=== PATIENT | female | born 1985 | race Caucasian/White ===

== ENCOUNTER 2024-04-22 10:45 | Outpatient (CLI) | payer OTHER, SELFPAY ==
--- NOTE | ~2024-04-22 | US_ITS ---
EXAMINATION: US venous doppler LE DATE: 04/22/2024 11:04 INDICATION: Right lower leg pain TECHNIQUE: Grayscale ultrasound images without and with compression and Doppler ultrasound images of the right lower extremity veins were obtained. COMPARISON: None. FINDINGS: The visualized portions of right common femoral vein, profunda (deep) femoral vein, femoral vein, pop liteal vein, peroneal trunk, posterior tibial veins, peroneal veins, gastrocnemius vein and greater s aphenous vein outflow are patent. IMPRESSION: 1. No deep venous thrombosis in the right lower limb. Reviewed, dictated and finalized at location A. DRAWER
--- OUTSIDE RECORDS SUMMARY | 2024-04-22 11:17 | XMS_ITS | Encounter Summary ---
Author Organization [facility] Address [address] [place] [address]. [place], [place] [address] [place] [address] Care Team Providers Care Cooker Cleaner Name Role Phone Yanira Catalan [facility] Primary Care Provider + Rashawn Rhodes Primary Care Provider [phone] Encounter Details Date Type Department Care Team (Late st Contact Info) Description 04/24/2022 enrich-int Message Enc [facility] Medical Group Family & Internal Medicine [facility] [id number] [place] [address] Yanira Catalan [facility] [address] [place] [address] Back pain Social History Tobacco Use Types Packs/Day Years Used Date Smoking Tobacco: Every Day Smokeless Tobacco: Never Alcohol Use Standard Drinks/Week Comments Yes 0 (1 standard drink = 0.6 oz pur e alcohol) PHQ-2 Answer Date Recorded Patient Health Questionnaire-2 Score 1 04/18/2022 Comments No Sex and Gender Information Value Date Recorded Sex Assigned at Not on file Legal Sex Female 5:37 PM CDT Gender Identity Female 08/14/2021 12:50 PM CDT Sexual Orientation Not on file Occupation Industry Job Start Date Job End Date Not on file Not on file Not on file Not on file COVID-19 Exposure Response Date Recorded In the last 10 days, have yo u been in contact with someone who was confirmed or suspected to have Coronavirus/COVID-19? No / Unsure 04/18/2022 12:08 PM SEWER LINE PHOTO INSPECTOR documented as of this encounter Plan of Treatment Not on file documented as of this encounter Visit Diagnoses Not on filedocumented in this encounter Additional Health Concerns Assessment Noted Time PHQ-9 Depression Total Score: 10 023 3:38 PM SEWER LINE PHOTO INSPECTOR documented as of this encounter Care Teams Cooker Cleaner Relationship Specialty Start Date End Date Yanira Catalan FNP- PCP - General Nurse Practitioner Family 08/27/1803/31 [place] [address] [place] [address] PCP - General Physician Accredited Farm Manager Medical 04/28/23 documented as of this encounter
--- OUTSIDE RECORDS SUMMARY | 2024-04-22 11:17 | XMS_ITS | Patient Health Summary ---
Author Organization [facility] Address [address] [place] [address] Care Team Providers Care Postulant Name Role Phone Unavailable Primary Care Provider Unavailabl e Note from [facility],non-owned Affiliates and Associated Physician Practices is amultiple site organization consisting of ambulatory clinics and hospital sitesin [place], [place], [place] and [place]. This disclosure is being madepursuant to the Care Everywhere program and may not contain all information available regarding this patient. Last updated 17.[facility] Social History Tobacco Use Types Packs/Day Years Used Date Smoking Tobacco: Never Assessed Sex and Gender Information Value Date Recorded Sex Assigned at Not on file Gender Identity Not on file Sexual Orientation Not on file Procedures * CULTURE URINE(Performed 10/19/2013) Results * CULTURE URINE (10/19/2013 4:00 PM CDT) Culture Urine Less than 10,000 CFU/ML of Normal Urogenital/ Skin Makayla [facility] Comment:. Urine specimen (specimen) URINE SPECIMEN OBTAINED BY CLEAN CATCH PROCEDURE / Unknown 10/19/2013 4:00 PM CDT 10/19/2013 9:04 PM CDT Narrative [facility] - 10/21/2013 1:54 PM CDT AndersonSpecimen#[id number] [place] Loc/Rm/Bed: EXPCARE H// CLN CATCH U Historical Provider LAB - MICROBIOLOG Y ORDERABLES [address] [address], [facility] [phone]
--- OUTSIDE RECORDS SUMMARY | 2024-04-22 11:17 | XMS_ITS | Encounter Summary ---
Author Organization [facility] Address [address] [place] [address]. [place], [place] [address] [place] [address] Care Team Providers Care Associate Professor Of Art Name Role Phone Yanira Catalan [facility] Primary Care Provider + Rashawn Rhodes Primary Care Provider [phone] Encounter Details Date Type Department Care Team (Late st Contact Info) Description 09/24/2022 MyChart Message Enc [facility] Medical Group - [facility] [address] [place] [address] [place] [address], [facility] Provider Air Quality Message Social History Tobacco Use Types Packs/Day Years Used Date Smoking Tobacco: Every Day Smokeless Tobacco: Never Alcohol Use Standard Drinks/Week Comments Yes 0 (1 standard drink = 0.6 oz pur e alcohol) PHQ-2 Answer Date Recorded Patient Health Questionnaire-2 Score 0 08/22/2022 Comments No Sex and Gender Information Value Date Recorded Sex Assigned at Not on file Legal Sex Female 5:37 PM CDT Gender Identity Female 08/14/2021 12:50 PM CDT Sexual Orientation Not on file Occupation Industry Job Start Date Job End Date Not on file Not on file Not on file Not on file documented as of this encounter Plan of Treatment Not on file documented as of this encounter Visit Diagnoses Not on filedocumented in this encounter Additional Health Concerns Assessment Noted Time PHQ-9 Depression Total Score: 10 023 4:33 PM CDT documented as of this encounter Care Teams Associate Professor Of Art Relationship Specialty Start Date End Date Yanira Catalan FNP-BC PCP - General Nurse Practitioner Family 08/27/1803/31 [place] [address] [place] [address] PCP - General Physician Car Supplier Medical 04/28/23 documented as of this encounter
--- OUTSIDE RECORDS SUMMARY | 2024-04-22 11:17 | XMS_ITS | Referral Summary ---
Author Organization [facility] Address [address] [facility] [place] [address] Care Team Providers Care Handle And Vent Machine Operator Name Role Phone Unavailable Primary Care Provider Unavailabl e Source Comments [facility],non-owned Affiliates and Associated Physician Practices is amultiple site organization consisting of ambulatory clinics and hospital sitesin [place], [place], [place] and [place]. This disclosure is being madepursuant to the Care Everywhere program and may not contain all information available regarding this patient. Last updated 17.[facility] Social History Tobacco Use Types Packs/Day Years Used Date Smoking Tobacco: Never Assessed Sex and Gender Information Value Date Recorded Sex Assigned at Not on file Gender Identity Not on file Sexual Orientation Not on file Plan of Treatment Not on file
--- OUTSIDE RECORDS SUMMARY | 2024-04-22 11:17 | XMS_ITS | Clinical Summary ---
Author Organization [facility] [employer] Address [address] [facility] [place] [address] Care Team Providers Care Pyridine Recovery Operator Name Role Phone Unavailable Primary Care Provider Unavailabl e Source Comments [facility],non-owned Affiliates and Associated Physician Practices is amultiple site organization consisting of ambulatory clinics and hospital sitesin [place], [place] and [place]. This disclosure is being madepursuant to the Care Everywhere program and may not contain all information available regarding this patient. Last updated 17.[facility] Social History Tobacco Use Types Packs/Day Years Used Date Smoking Tobacco: Never Assessed Sex and Gender Information Value Date Recorded Sex Assigned at Not on file Gender Identity Not on file Sexual Orientation Not on file Plan of Treatment Health Maintenance Due Date Last Done Comments PAP SMEAR 1987 HIV SCREENING 07/07/2002 HEPATITIS C SCREENING 07/03/2005 DTAP/TDAP/TD VACCINES (1 - Tdap) 07/07/2006 HEPATITIS B VACCINE (1 of 3 - 19+ 3-dose series) 07/07/2006 COVID-19 VACCINE (2023-2 5 season) 2023 INFLUENZA VACCINE (#1) 2023 DEPRESSION SCREENING 03/30/2024 ZOSTER VACCINE (1 of 2) 07/07/2037 HIB VACCINE Aged Out No longer eligi ble based on patient's age to complete this topic HPV VACCINE Aged Out No longer eligi ble based on patient's age to complete this topic MENINGOCOCCAL (Group B) VACCINE Aged Out No longer eligible based on patient's age to complete this topic MENINGOCOCCAL VACCINE Aged Out No castro claude eligible based on patient's age to complete this topic PNEUMOCOCCAL VACCINE Aged Out No long er eligible based on patient's age to complete this topic
--- OUTSIDE RECORDS SUMMARY | 2024-04-22 11:17 | XMS_ITS | Encounter Summary ---
Author Organization [facility] Address [address] [place] [address]. [place], [place] [address] [place] [address] Care Team Providers Care Polls Or Surveys Interviewer Name Role Phone Yanira Catalan [facility] Primary Care Provider + Rashawn Rhodes Primary Care Provider [phone] Encounter Details Date Type Department Care Team (Late st Contact Info) Description 08/07/2022 Lelat Message Enc [facility] Medical Group Family & Internal Medicine [address] [address] Yanira Catalan [facility] [address] [place] [id number] Side affect of medication Social History Tobacco Use Types Packs/Day Years [...] on file documented as of this encounter Progress Notes * Cassi Connors MA - 08/07/2022 10:12 AM CDT Please advise documented in this encounter Plan of Treatment Not on file documented as of this encounter Visit Diagnoses Not on filedocumented in this encounter Additional Health Concerns Assessment Noted Time PHQ-9 Depression Total Score: 10 023 3:38 PM SHIRT FINISHER documented as of this encounter Care Teams Polls Or Surveys Interviewer Relationship Specialty Start Date End Date [facility] PCP - General Nurse Practitioner Family 08/27/1803/31 [place] [address] [place] [address] PCP - General Physician Urinalysis Technician Medical 04/28/23 documented as of this encounter
--- OUTSIDE RECORDS SUMMARY | 2024-04-22 11:17 | XMS_ITS | Clinical Summary ---
Author Organization [facility] Address [address] [place] [address]. [place], [place] [address] [place] [address] Care Team Providers Care Computational Theory Scientist Name Role Phone Rashawn Rhodes Primary Care Provider Allergies Active Allergy Reactions Criticality Noted Date Comments Prednisone Palpitations Medium 08/30/2018 Medications FLUoxetine (PROZAC) 20 MG capsuleIndicatio ns:Generalized anxiety disorder,Reactiv e depression Take 1 capsule (20 mg total) by mouth daily. 30 capsule 1 3 Active albuterol sulfate HFA 108 (90 Base) MCG/ACT inhalerIndicatio ns:Uncomplicated asthma, unspecified asthma severity, unspecified whether persistent (HHS/HCC) Inhale 2 puffs into the lungs every 4 (four) hours as needed for Wheezing. 18 g 5 4 Active GASTON Núñez, (MEDROL DOSEPAK) 4 MG tabletIndication s:Mild intermittent asthma with exacerbation (HHS/HCC) Take as directed 1 each 4 Active Albuterol-Budeso nide (AIRSUPRA) 90-80 MCG/ACT AerosolIndicatio ns:Mild intermittent asthma with exacerbation (HHS/HCC) Inhale 2 Inhalations into the lungs every 4 (four) hours as needed. 10.7 g 1 4 Active naproxen (NAPROSYN) 500 MG tablet Take 1 tablet (500 mg total) by mouth 2 (two) times daily with meals. 60 tablet 4 Active Active Problems Problem Noted Date Diagnosed Date Alopecia 08/25/2022 Generalized anxiety disorder 08/30/2018 Reactive depression 08/30/2018 Uncomplicated asthma, unspec ified asthma severity, unspecified whether persistent ([facility]) 08/30/2018 Class 3 severe obesity due t o excess calories without serious comorbidity with body mass index (BMI) of 40.0 to 44.9 in adult ([facility]) 08/30/2018 Resolved Problems Problem Noted Date Diagnosed Date Resolved Date Other fatigue 08/30/2018 08/25/2022 Left elbow pain 08/17/2018 04/24/2022 Immunizations Name Administration Dates Next Due Dtap (Generic) 01/07/2016 Influenza Adult (Generic) 01/05/2023,,01/03/2019, 018 PFIZER COVID-19 (ORIGINAL FORMULATION, PURPLE CAP) mRNA, LNP-S, PF, 30 MCG/0.3 ML DOSE 04/30/2020,04/09/2020 Family History Medical History Relation Comments Heart Attack Father Diabetes Other 1 Heart Disease Other 1 Hyperlipidemia Other 1 Hypertension Other 1 Colon Cancer Other 2 Ovarian Cancer Paternal Aunt Cancer - skin Paternal Grandmother Relation Status Comments Father Other 1 Alive Other 2 Alive Paternal Aunt Paternal Grandmother Social History Tobacco Use Types Packs/Day Years Used Date Smoking Tobacco: Former Cigarettes Smokeless Tobacco: Never Tobacco Cessation:Counseling Given: Not Answered Comments:1 pack a week Alcohol Use Standard Drinks/Week Comments Yes 0 (1 standard drink = 0.6 oz pur e alcohol) occ PHQ-2 Answer Date Recorded Patient Health Questionnaire-2 Score 2 04/29/2023 Comments No Sex and Gender Information Value Date Recorded Sex Assigned at Not on file Legal Sex Female 5:37 PM CDT Gender Identity Female 08/14/2021 12:50 PM CDT Sexual Orientation Not on file Occupation Industry Job Start Date Job End Date Not on file Not on file Not on file Not on file Last Filed Vital Signs Vital Sign Reading Time Taken Comments Blood Pressure 136/80 10/19/2023 12:51 PM CDT Pulse 100 10/19/2023 12:51 PM CDT Temperature 36.4 ??C (97.5 ??F) 10/19/2023 1 2:51 PM CDT Respiratory Rate 18 10/19/2023 12:5 1 PM CDT Oxygen Saturation 95% 10/19/2023 12: 51 PM CDT Inhaled Oxygen Concentration - - Weight 116.4 kg (256 lb 9.9 oz) 024 12:51 PM CDT Height 162.6 cm (5' 4 ) 10/19/2023 12:5 1 PM CDT Body Mass Index 44.05 10/19/2023 12:51 PM CDT Plan of Treatment Health Maintenance Due Date Last Done Comments Pneumococcal Vaccine: Pediatrics (0 to 5 Years) and At-Risk Patients (6 to 64 Years) (1 of 2 - PCV) 07/07/1993 Hepatitis C 07/07/2005 Hepatitis B Vaccines (1 of 3 - 19+ 3-dose series) 07/07/2006 Cervical Cancer Screening Pap with HPV Testing (Age 30 to 64) Every 5 Years 07/07/2017 01/27/2014 Annual Physical 04/18/2023 04/18/2022 COVID-19 Vaccine ( season) 2023 04/30/2020, 04/09/2020 Influenza Adult (#1) 2023 01/05/2023, 01/09/2022, 01/03/2019, Additional history exists PHQ-2 (Physician [place]) 04/29/2024 04/29/2023 DTaP, Tdap and Td Vaccines (2 - Tdap) 01/06/2026 01/07/2016 Cervical Cancer Screening Pap Smear (Age 30 to 64) Every 3 Years 02/19/2028 Postponed from 1987 (Going to Outside Clinic) Cervical Cancer Screening with HPV 02/19/2028 Postponed from 1987 HPV Vaccines Aged Out No longer eligi ble based on patient's age to complete this topic Meningococcal B Vaccine Aged Out No l onger eligible based on patient's age to complete this topic Meningococcal Vaccine Aged Out No castro claude eligible based on patient's age to complete this topic RSV Immunizations Under 20 Months Aged Out No longer eligible based on patient's age to complete this topic Procedures Procedure Name Priority Date/Time Associated Diagnosis Comments OUTSIDE CYTOPATH CERV/VAG INTERPRET (PAP) 01/27/2014 from Last 3 Months or Most Recently Relevant to Health Maintenance Results * OUTSIDE CYTOPATH VAG/CERV PAP WITH HPV (01/27/2014) 01/27/2014 Narrative 01/27/2014 Ordered by an unspecified provider. us Documents Scanned SCANNING Final Result from Last 3 Months or Most Recently Relevant to Health Maintenance Insurance [facility] Care Teams Computational Theory Scientist Relationship Specialty [place] [address] [place] [address] PCP - General Physician Avionic Technician Medical 04/28/23
--- OUTSIDE RECORDS SUMMARY | 2024-04-22 11:17 | XMS_ITS | Encounter Summary ---
Author Organization [facility] Address [address] [place] [address]. [place], [place] [address] [place] [address] Care Team Providers Care Lead Technician Name Role Phone Yanira Catalan [facility] Primary Care Provider + Rashawn Rhodes Primary Care Provider [phone] Encounter Details Date Type Department Care Team (Late st Contact Info) Description 12/27/2019 MyChart Message Enc [facility] Medical Group Family & Internal Medicine [address] [address] Yainra Catalan [place] [address] [place] [address] RE: Test Results Social History Tobacco Use Types Packs/Day Years Used Date Smoking Tobacco: Every Day Smokeless Tobacco: Never Alcohol Use Standard Drinks/Week Comments Yes 0 (1 standard drink = 0.6 oz pur e alcohol) PHQ-2 Answer Date Recorded PHQ-2 Score 3 02/23/2019 Comments No Sex and Gender Information Value Date Recorded Sex Assigned at Not on file Legal Sex Female 5:37 PM CDT Gender Identity Female 08/14/2021 12:50 PM CDT Sexual Orientation Not on file Occupation Industry Job Start Date Job End Date Not on file Not on file Not on file Not on file documented as of this encounter Progress Notes * Jo Mena RN - 12/27/2019 1:52 PM CDT Letter and results emailed as requested * MIKAYLA Garrido - 12/27/2019 1:20 PM CDT Please draft note to state Lizeth was seen on 12/22/2019 at which time she was swabbed for COVID and placed on quarantine until results received which yielded negative results. Lizeth may return to work if fever free for 24 hours and symptoms improved. * Jo Mena RN - 12/27/2019 12:20 PM CDT Please advise documented in this encounter Plan of Treatment Not on file documented as of this encounter Visit Diagnoses Not on filedocumented in this encounter Additional Health Concerns Assessment Noted Time PHQ-9 Depression Total Score: 10 019 2:02 PM SPORT SHOE SPIKE ASSEMBLER documented as of this encounter Care Teams Lead Technician Relationship Specialty Start Date End Date Yanira Catalan FNP-BC PCP - General Nurse Practitioner Family 08/27/18 12 12/21 [place] [address] [place] [address] PCP - General Physician Neurodiagnostic Tech Medical 04/28/23 documented as of this encounter
--- OUTSIDE RECORDS SUMMARY | 2024-04-22 11:17 | XMS_ITS | Encounter Summary ---
Author Organization [facility] Address [address] [place] [address]. [place], [place] [address] [place] [address] Care Team Providers Care Direct Service Worker Name Role Phone Yanira Catalan [facility] Primary Care Provider + Rashawn Rhodes Primary Care Provider Encounter Details Date Type Department Care Team (Late st Contact Info) Description 06/23/2022 Specle Message Enc [facility] Medical Group Family & Internal Medicine [address] [address] Afshan, [facility] Provider due for routine follow up Social History Tobacco Use Types Packs/Day Years [...] suspected to have Coronavirus/COVID-19? No / Unsure 06/11/2022 7:54 AM CDT documented as of this encounter Plan of Treatment Not on file documented as of this encounter Visit Diagnoses Not on filedocumented in this encounter Additional Health Concerns Assessment Noted Time PHQ-9 Depression Total Score: 10 023 3:38 PM FURNACE CARETAKER documented as of this encounter Care Teams Direct Service Worker Relationship Specialty Start Date End Date Yan[facility] PCP - General Nurse Practitioner Family 08/27/1803/31 [place] [address] [place] [address] PCP - General Physician Autism Teacher Medical 04/28/23 documented as of this encounter
== END 2024-04-22 10:46 | disposition home or self-care (01) ==
LOC: CHSIMG 10:47
PROVIDERS: PCP Physician Assistant Medical; Visit Provider Physician Assistant Medical
DX: M79.661 Pain in right lower leg (principal); M79.89 Other specified soft tissue disorders
CPT/HCPCS: 93971

== ENCOUNTER 2024-10-06 14:52 | Outpatient (CLI) | payer OTHER, SELFPAY ==
--- OUTSIDE RECORDS SUMMARY | 2024-10-06 14:56 | XMS_ITS | Encounter Summary ---
Author Organization [facility] Address [address] [place] [address] Care Team Providers Care Bmet Name Role Phone Yanira Catalan [facility] Primary Care Provider + Rashawn Rhodes Primary Care Provider [phone] Encounter Details Date Type Department Care Team (Late st Contact Info) Description 06/23/2022 Droplet Message Enc [facility] Medical Group Family & Internal Medicine [address] [address] Afshan, [facility] Provider due for routine follow up Social History Tobacco Use Types Packs/Day Years Used Date Smoking Tobacco: Every Day Smokeless Tobacco: Never Alcohol Use Standard Drinks/Week Comments Yes 0 (1 standard drink = 0.6 oz pur e alcohol) PHQ-2 Answer Date Recorded Patient Health Questionnaire-2 Score 1 04/18/2022 Comments No Sex and Gender Information Value Date Recorded Sex Assigned at Female 09/28/2024 3:00 PM CDT Legal Sex Female 5:37 PM CDT Gender [...] Depression Total Score: 10 023 3:38 PM JOINTER OPERATOR documented as of this encounter Care Teams Bmet Relationship Specialty Start Date End Date [facility] PCP - General Nurse Practitioner Family 08/27/1803/31 [place] [address] [place] [address] PCP - General Physician Public Safety Police Medical 04/28/23 documented as of this encounter
--- OUTSIDE RECORDS SUMMARY | 2024-10-06 14:56 | XMS_ITS | Encounter Summary ---
Author Organization [facility] Address [address] [place] [address] Care Team Providers Care Loft Worker Head Name Role Phone Yanira Catalan [facility] Primary Care Provider + Rashawn Rhodes Primary Care Provider [phone] Encounter Details Date Type Department Care Team (Late st Contact Info) Description 08/07/2022 Impact Message Enc [facility] Medical Group Family & Internal Medicine [address] [address] Yanira Catalan [facility] [address] [place] [address] Side affect of medication Social History Tobacco [...] Depression Total Score: 10 023 3:38 PM PARTNER MANAGER documented as of this encounter Care Teams Loft Worker Head Relationship Specialty Start Date End Date Yan[facility]an [facility] PCP - General Nurse Practitioner Family 08/27/1803/31 [place] [address] [place] [address] PCP - General Physician Acid Remover Medical 04/28/23 documented as of this encounter
--- OUTSIDE RECORDS SUMMARY | 2024-10-06 14:56 | XMS_ITS | Encounter Summary ---
Author Organization [facility] Address [address] [place] [address] Care Team Providers Care Laboratory Technician Name Role Phone [facility] Primary Care Provider + Rashawn Rhodes Primary Care Provider [phone] Encounter Details Date Type Department Care Team (Late st Contact Info) Description 09/24/2022 MyChart Message Enc [facility] Medical Group [facility] [address] [place] [id number] [employer] Provider Air Quality Message Social History [...] documented as of this encounter Care Teams Laboratory Technician Relationship Specialty Start Date End Date Yanira Catalan FNP-BC PCP - General Nurse Practitioner Family 08/27/18 112/21 [place] [address] [place] [address] PCP - General Physician Propeller Driven Airplane Mechanic Medical 04/28/23 documented as of this encounter
--- OUTSIDE RECORDS SUMMARY | 2024-10-06 14:56 | XMS_ITS | Clinical Summary ---
Author Organization [facility] Room ([facility]) Address [address] [facility] [place] [address] Care Team Providers Care Business Banking Relationship Manager Name Role Phone Unavailable Primary Care Provider Unavailabl e Source Comments [facility] ([facility]),non-owned Affiliates and Associated Physician Practices is amultiple site organization consisting of ambulatory clinics and hospital sitesin [place], [place], [place] and [place]. This disclosure is being madepursuant to the Care Everywhere program and may not contain all information available regarding this patient. Last updated 17.[facility] ([facility]) Social History Tobacco Use Types Packs/Day Years Used Date Smoking Tobacco: Never Assessed Comments Unknown Sex and Gender Information Value Date Recorded Sex Assigned at Not on file Legal Sex Female 6:31 PM RADIOGRAPHER CARDIAC CATHETERIZATION Gender Identity Not on file Sexual Orientation Not on file Plan of Treatment Health Maintenance Due Date Last Done Comments HIV SCREENING 07/07/2002 HEPATITIS C SCREENING 07/03/2005 DTAP/TDAP/TD VACCINES (1 - Tdap) 07/07/2006 HEPATITIS B VACCINE (1 of 3 - 19+ 3-dose series) 07/07/2006 PAP SMEAR 07/07/2008 COVID-19 VACCINE (1 - 2023-2 5 season) 2023 DEPRESSION SCREENING 03/30/2024 INFLUENZA VACCINE (Season Ended) 2024 ZOSTER VACCINE (1 of 2) 07/07/2037 HIB VACCINE Aged Out No longer eligi ble based on patient's age to complete this topic HPV VACCINE Aged Out No longer eligi ble based on patient's age to complete this topic MENINGOCOCCAL (Group B) VACC INE SHARED DECISION-MAKING Aged Out No longer eligibl e based on patient's age to complete this topic MENINGOCOCCAL GROUPS A/C/Y/W VACCINE Aged Out No longer eligible b ased on patient's age to complete this topic PNEUMOCOCCAL VACCINE Aged Out No long er eligible based on patient's age to complete this topic
--- OUTSIDE RECORDS SUMMARY | 2024-10-06 14:57 | XMS_ITS | Encounter Summary ---
Author Organization [facility] Address [address] [place] [address] Care Team Providers Care Wildlife Officer Name Role Phone Yanira Catalan [facility] Primary Care Provider + Rashawn Rhodes Primary Care Provider [phone] Encounter Details Date Type Department Care Team (Late st Contact Info) Description 12/27/2019 MyCRobotsLABt Message Enc [facility] Medical Group Family & Internal Medicine [address] [address] Yanira Catalan [place] [place] [address] RE: Test Results Social History [...] Depression Total Score: 10 019 2:02 PM MAGAZINE DESIGNER documented as of this encounter Care Teams Wildlife Officer Relationship Specialty Start Date End Date Yanira Catalan FNP-BC PCP - General Nurse Practitioner Family 08/27/1803/31 [place] [address] [place] [address] PCP - General Physician Online Merchandising Coordinator Medical 04/28/23 documented as of this encounter
--- OUTSIDE RECORDS SUMMARY | 2024-10-06 14:57 | XMS_ITS | Clinical Summary ---
Author Organization [facility] Address [address] [place] [address] Care Team Providers Care Dispatch Lead Name Role Phone Rashawn Rhodes Primary Care Provider [phone] Allergies Active Allergy Reactions Criticality Noted Date [...] daily with meals. 60 tablet 4 Active omeprazole (PRILOSEC) 40 MG capsule Take 1 capsule (40 mg total) by mouth daily. 30 capsule Active Active Problems Problem Noted Date Diagnosed Date Alopecia 08/25/2022 Generalized anxiety disorder 08/30/2018 Reactive depression 08/30/2018 Uncomplicated asthma, unspec ified asthma severity, unspecified whether persistent ([facility]/H[facility]) 08/30/2018 Class 3 severe obesity due t o excess calories without serious comorbidity with body mass index (BMI) of 40.0 to 44.9 in adult 08/30/2018 Resolved Problems Problem Noted Date Diagnosed Date Resolved Date Other fatigue 08/30/2018 08/25/2022 Left elbow pain 08/17/2018 04/24/2022 Encounters Date Type Department Care Team Description 09/28/2024 2:43 PM CDT - 09/28/2024 7:02 PM CDT Emergency [facility] Emergency Room [address] [place] [address] Grabiel Wang MD Abdominal Pain Discharge Disposition: Home or Self Care (Routine Discharge) 09/28/2024 Travel from Last 3 Months Immunizations Immunization Administration Dates Next Due Dtap (Generic) 01/07/2016 Influenza Adult (Generic) 01/05/2023,,01/03/2019,2017 PFIZER COVID-19 (ORIGINAL FORMULATION, PURPLE CAP) mRNA, [...] Sign Reading Time Taken Comments Blood Pressure 96/55 09/28/2024 6:31 PM CDT Pulse 86 09/28/2024 2:49 PM CDT Temperature 36.7 C (98 F) 09/28/2024 2:49 PM CDT Respiratory Rate 18 09/28/2024 2:49 PM CDT Oxygen Saturation 97% 09/28/2024 2:53 PM CDT Inhaled Oxygen Concentration - - Weight 116.1 kg (256 lb) 09/28/2024 2:49 PM CDT Height 162.6 cm (5' 4) 09/28/2024 2:49 PM CDT Body Mass Index 43.94 09/28/2024 2:49 PM CDT Plan of Treatment Health Maintenance Due Date Last Done Comments Hepatitis C 07/07/2005 Hepatitis B Vaccines (1 of 3 - 19+ 3-dose series) 07/07/2006 Pneumococcal Vaccine: Pediatrics (0 to 5 Years) and At-Risk Patients (6 to 49 Years) (1 of 2 - PCV) 07/07/2006 Cervical Cancer Screening Pa p with HPV Testing (Age 30 to 64) Every 5 Years 07/07/2017 01/27/2014 Annual Physical 04/18/2023 04/18/2022 COVID-19 Vaccine (3 - 2023-2 5 season) 2023 04/30/2020, 04/09/2020 PHQ-2 (Physician [place]) 03/30/2024 04/29/2023 DTaP, Tdap and Td Vaccines ( 2 - Tdap) 01/06/2026 01/07/2016 Cervical Cancer Screening Pa p Smear (Age 30 to 64) Every 3 Years 02/19/2028 Postponed from 07/07 (Going to Outside Clinic) Cervical Cancer Screening with HPV 02/19/2028 Postponed from 07/07 HPV Vaccines Aged Out No longer eligi ble based on patient's age to complete this topic Meningococcal B Vaccine Aged Out No l onger eligible based on patient's age to complete this topic Meningococcal Vaccine Aged Out No castro claude eligible based on patient's age to complete this topic RSV Immunizations Under 20 Months Aged Out No longer eligible b ased on patient's age to complete this topic Procedures Procedure Name Priority Date/Time Associated Diagnosis Comments US ABD LIMITED STAT 09/28/2024 5:[address] ABD+PEL WO CON STAT 09/28/2024 4:4 5 PM CDT URINALYSIS MICRO ONLY STAT 09/28/2024 3:15 PM CDT TEST URINE STAT 09/28/2024 3:15 PM CDT HC URINALYSIS AUTO W/O MICRO STAT 09/28/2024 3:15 PM CDT LIPASE STAT 09/28/2024 3:15 PM CDT COMPREHENSIVE METABOLIC PANEL STAT 09/28/2024 3:15 PM CDT CBC W/DIFF AUTOMATED STAT 09/28/2024 3:15 PM CDT OUTSIDE CYTOPATH CERV/VAG INTERPRET (PAP) 01/27/2014 from Last 3 Months or Most Recently Relevant to Health Maintenance Results * US ABD LIMITED (09/28/2024 5:42 PM CDT) Anatomical Region Laterality Modality Abdomen Ultrasound 09/28/2024 5:42 PM CDT Impressions 09/28/2024 5:44 PM CDT IMPRESSION: 1. No acute findings. 2. Hepatic steatosis as seen on same day CT. Referred By: Interpreted By: Samantha Gao DO, 09/28/2024 5:42 PM Narrative 09/28/2024 5:44 PM CDT [facility] [address] [place] [address] EXAMINATION: US ABD LIMITED REPORT DATE: 09/28/2024 5:42 PM INDICATION: ruq abdominal pain COMPARISON(S): Same day CT abdomen/pelvis without, right upper quadrant ultrasound 10/19/2023 TECHNIQUE: Grayscale and color Doppler ultrasound evaluation of the abdomen. FINDINGS: PANCREAS: Visualized portions of the head and body are normal. Tail is obscured by overlying bowel gas. LIVER: Parenchyma is hyperechoic. No surface nodularity. No hepatic mass. Portal vein is patent with normal direction of flow. BILE DUCTS: Common duct measures 0.4 cm. No intrahepatic biliary ductal dilatation. GALLBLADDER: Gallbladder wall thickness measures 0.2 cm, normal. No stones, sludge, or pericholecystic fluid. Absent sonographic Mcdermott sign, per professor of finance. RIGHT KIDNEY: 10.7 cm in length . Normal echogenicity. Normal morphology. No pelvicalyceal dilatation, calculi, or mass. Procedure Note Samantha Gao DO - 09/28/2024 [facility] [address] [facility] [place] [address] EXAMINATION: US ABD LIMITED REPORT DATE: 09/28/2024 5:42 PM INDICATION: ruq abdominal pain COMPARISON(S): Same day CT abdomen/pelvis without, right upper quadrantultrasound 10/19/2023 TECHNIQUE: Grayscale and color Doppler ultrasound evaluation of theabdomen. FINDINGS: PANCREAS: Visualized portions of the head and body are normal. Tail isobscured by overlying bowel gas. LIVER: Parenchyma is hyperechoic. No surface nodularity. No hepatic mass.Portal vein is patent with normal direction of flow. BILE DUCTS: Common duct measures 0.4 cm. No intrahepatic biliary ductaldilatation. GALLBLADDER: Gallbladder wall thickness measures 0.2 cm, normal. Nostones, sludge, or pericholecystic fluid. Absent sonographic Mcdermott sign,per professor of finance. RIGHT KIDNEY: 10.7 cm in length . Normal echogenicity. Normal morphology.No pelvicalyceal dilatation, calculi, or mass. IMPRESSION: 1. No acute findings. 2. Hepatic steatosis as seen on same day CT. Referred By: Interpreted By: Samantha Gao DO, 09/28/2024 5:42 PM us Grabiel Wang MD ULTRASOUND Final Resul t * CT ABD+PEL WO CON (09/28/2024 4:45 PM CDT) Anatomical Region Laterality Modality Abdomen Computed Tomogra phy 09/28/2024 5:38 PM CDT Impressions 09/28/2024 5:42 PM CDT IMPRESSION: 1. No acute findings of the abdomen or pelvis. Normal noncontrasted CT appearance of the gallbladder and kidneys. 2. Hepatic steatosis Referred By: Interpreted By: Samantha Gao DO, 09/28/2024 5:38 PM Narrative 09/28/2024 5:42 PM CDT [facility] [address] [place] [address] STUDY: CT ABD+PEL WO CON: 09/28/2024 4:43 PM CLINICAL INFORMATION: RUQ and epigastric abdominal pain COMPARISON: None. TECHNIQUE: CT acquisition of the abdomen and pelvis. Coronal and sagittal reformatted images provided. A dose lowering technique was utilized for this procedure which may include but is not limited to dose reduction techniques, automated exposure control, and/or the use of iterative reconstruction in accordance with ALARA principle. IV Contrast: None Oral contrast: None. FINDINGS: LOWER CHEST: Unremarkable. ABDOMEN/PELVIS: Liver: Diffuse decreased attenuation throughout the hepatic parenchyma. Gallbladder/biliary: Normal gallbladder. No biliary ductal dilation. Pancreas: Unremarkable. Spleen: Normal. Adrenal glands: Normal. Kidneys and ureters: No hydronephrosis or hydroureter. No renal calcifications. Bladder: Normal. Reproductive organs: Unremarkable. Stomach/bowel: Nonobstructive appearance. Appendix: Normal. Lymph nodes: No lymphadenopathy. Peritoneum: No intraperitoneal free air. No intraperitoneal free fluid. Vessels: Normal. MUSCULOSKELETAL: Abdominal wall: No soft tissue mass. Bones: No acute osseous abnormality. Moderate degenerative change at L5-S1 with moderate canal stenosis and moderate bilateral foraminal narrowing, right greater than left. Soft tissues: Unremarkable. Procedure Note Samantha Gao DO - 09/28/2024 [facility] [address] [place] [address] STUDY: CT ABD+PEL WO CON: 09/28/2024 4:43 PM CLINICAL INFORMATION: RUQ and epigastric abdominal pain COMPARISON: None. TECHNIQUE: CT acquisition of the abdomen and pelvis. Coronal and sagittalreformatted images provided. A dose lowering technique was utilized forthis procedure which may include but is not limited to dose reductiontechniques, automated exposure control, and/or the use of iterativereconstruction in accordance with ALARA principle. IV Contrast: None Oral contrast: None. FINDINGS: LOWER CHEST: Unremarkable. ABDOMEN/PELVIS: Liver: Diffuse decreased attenuation throughout the hepatic parenchyma. Gallbladder/biliary: Normal gallbladder. No biliary ductal dilation. Pancreas: Unremarkable. Spleen: Normal. Adrenal glands: Normal. Kidneys and ureters: No hydronephrosis or hydroureter. No renalcalcifications. Bladder: Normal. Reproductive organs: Unremarkable. Stomach/bowel: Nonobstructive appearance. Appendix: Normal. Lymph nodes: No lymphadenopathy. Peritoneum: No intraperitoneal free air. No intraperitoneal free fluid. Vessels: Normal. MUSCULOSKELETAL: Abdominal wall: No soft tissue mass. Bones: No acute osseous abnormality. Moderate degenerative change atL5-S1 with moderate canal stenosis and moderate bilateral foraminalnarrowing, right greater than left. Soft tissues: Unremarkable. IMPRESSION: 1. No acute findings of the abdomen or pelvis. Normal noncontrasted CTappearance of the gallbladder and kidneys. 2. Hepatic steatosis Referred By: Interpreted By: Samantha Gao DO, 09/28/2024 5:38 PM us Grabiel Wang MD CT Final Resul t * (ABNORMAL) URINALYSIS (09/28/2024 3:15 PM CDT) COLOR (U) YELLOW 09/28/2024 4:12 PM CDT [facility] TRANSPARENCY CLEAR 09/28/2024 4:12 PM CDT [facility] SPECIFIC GRAVITY (U) 1.015 1.000 - 1.030 09/28/2024 4:12 PM CDT [facility] U PH 6.0 5.0 - 9.0 09/28/2024 4:12 PM CDT [facility] LEUKOCYTES (U) TRACE(A) NEGATIVE 09/28/2024 4:12 PM CDT [facility] NITRITES NEGATIVE NEGATIVE 09/28/2024 4:12 PM CDT [facility] PROTEIN RANDOM (U) NEGATIVE NEGATIVE 09/28/2024 4:12 PM CDT [facility] GLUCOSE (U) NEGATIVE NEGATIVE 09/28/2024 4:12 PM CDT [facility] KETONES MG/DL (U) NEGATIVE NEGATIVE 09/28/2024 4:12 PM CDT [facility] BILIRUBIN (U) NEGATIVE NEGATIVE 09/28/2024 4:12 PM CDT [facility] BLOOD (U) TRACE(A) NEGATIVE 09/28/2024 4:12 PM CDT [facility] URINE SPECIMEN OBTAINED BY CLEAN CATCH PROCEDURE / Unknown 09/28/2024 3:15 PM CDT us Grabiel Wang MD URINE ORDERABLES Final Resu lt [facility] [address] [place] [address], * TEST URINE (09/28/2024 3:15 PM CDT) URINE HCG TEST NEGATIVE NEGATIVE 09/28/2024 4:00 PM CDT [facility] Comment: VERY DILUTE URINE SPECIMENS MAY NOT CONTAIN CITY ALDERMAN LEVELS OF HCG. IF IS STILL SUSPECTED, A SERUM HCG TEST IS RECOMMENDED. URINE SPECIMEN FROM URETHRA / Unknown 09/28/2024 3:15 PM CDT us Grabiel Wang MD URINE ORDERABLES Final Resu lt Performing Organization Address City/[facility]/ZIP Co de Phone Number [facility] [address] [place] [address], [place] [phone] * URINALYSIS MICRO ONLY (09/28/2024 3:15 PM CDT) WBC/HPF 0-5 0 - 5 /HPF 09/28/2024 4:12 PM CDT [facility] RBC/HPF 0-5 0 - 5 /HPF 09/28/2024 4:12 PM CDT [facility] EPI/HPF FEW /HPF 09/28/2024 4:12 PM CDT [facility] 09/28/2024 3:15 PM CDT us Grabiel Wang MD URINE ORDERABLES Final Resu lt Performing Organization Address [facility] Co de Phone Number [facility] [address] [place] [address], [place] [phone] * (ABNORMAL) COMPREHENSIVE METABOLIC PANEL (09/28/2024 3:15 PM CDT) GLUCOSE 100(H) 70 - 99 MG/DL 09/28/2024 4:18 PM CDT [facility] BUN 7 7 - 18 MG/DL 09/28/2024 4:18 PM CDT [facility] CREATININE S/P/B 0.82 0.55 - 1.02 MG/DL 09/28/2024 4:18 PM CDT [facility] SODIUM S/P/B 139 136 - 145 MMOL/L 09/28/2024 4:18 PM CDT [facility] POTASSIUM S/P/B 3.6 3.5 - 5.1 MMOL/L 09/28/2024 4:18 PM [facility] CHLORIDE S/P/B 102 100 - 108 MMOL/L 09/28/2024 4:18 PM [facility] CO2 28.5 21 - 32 MMOL/L 09/28/2024 4:18 PM [facility] CALCIUM S/P/B 9.3 8.5 - 10.1 MG/DL 09/28/2024 4:18 PM [facility] BILIRUBIN TOTAL S/P/B 0.5 0.2 - 1.2 MG/DL 09/28/2024 4:18 PM [facility] TOTAL PROTEIN S/P/B 8.5(H) 6.4 - 8.2 G/DL 09/28/2024 4:18 PM [facility] ALBUMIN S/P/B 4.1 3.4 - 5.0 G/DL 09/28/2024 4:18 PM [facility] AST 35 15 - 37 U/L 09/28/2024 4:18 PM [facility] ALT 51 14 - 55 U/L 09/28/2024 4:18 PM [facility] ALKALINE PHOSPHATASE S/P/B 90 50 - 136 U/L 09/28/2024 4:18 PM [facility] ANION GAP 8.5 5 - 15 MMOL/L 09/28/2024 4:18 PM [facility] BUN CREATININE RATIO 8.5 6 - 26 09/28/2024 4:18 PM [facility] A/G RATIO 0.9(L) 1.0 - 2.0 RATIO 09/28/2024 4:18 PM [facility] GFR ESTIMATE >90 >90 ML/MIN/1.7 3 M2 09/28/2024 4:18 PM CDT [facility] Comment: NOTE: eGFR is not calculated for patients <18 years of age. This is an estimated GFR calculation using the new CKD EPI creatinine equation without race and so does not require a correction factor for race. This estimated GFR should not be used for calculating drug doses. 09/28/2024 3:15 PM CDT us Grabiel Wang MD LABORATORY Final Resul t [facility] [address] [place] [address], * CBC W/DIFF AUTOMATED (09/28/2024 3:15 PM CDT) WBC 8.55 4.4 - 11.0 x10'3/uL 09/28/2024 3:37 PM CDT [facility] RBC 5.07 4.50 - 5.10 x10'6/uL 09/28/2024 3:37 PM CDT [facility] HGB 13.7 12.3 - 15.3 G/DL 09/28/2024 3:37 PM CDT [facility] HCT 42.8 35.9 - 44.6 % 09/28/2024 3:37 PM CDT [facility] MCV 84.4 80.0 - 96.0 FL 09/28/2024 3:37 PM CDT [facility] MCH 27.0 25.3 - 30.9 PG 09/28/2024 3:37 PM CDT [facility] MCHC 32.0 31.0 - 34.1 G/DL 09/28/2024 3:37 PM CDT [facility] RDW 13.8 12.4 - 15.1 % 09/28/2024 3:37 PM CDT [facility] PLT 347 151 - 353 x10'3/uL 09/28/2024 3:37 PM CDT [facility] MPV 10.6 9.6 - 12.0 FL 09/28/2024 3:37 PM CDT [facility] RBC MORPHOLOGY NORMAL 09/28/2024 3:37 PM CDT [facility] PLT MORPH. NORMAL 09/28/2024 3:37 PM CDT [facility] WBC MORPHOLOGY NORMAL 09/28/2024 3:37 PM CDT [facility] LYMPHOCYTES % 23.7 15.8 - 45.0 % 09/28/2024 3:37 PM CDT [facility] NEUTROPHILS % 66.3 42.1 - 71.9 % 09/28/2024 3:37 PM CDT [facility] MONOCYTES % 7.0 5.7 - 12.5 % 09/28/2024 3:37 PM CDT [facility] EOSINOPHILS 2.0 0.0 - 5.6 % 09/28/2024 3:37 PM CDT [facility] BASOPHILS 0.6 0.0 - 1.3 % 09/28/2024 3:37 PM T [facility] ABS. NEUTROPHILS 5.67 1.40 - 6.00 x10'3/uL 09/28/2024 3:37 PM T [facility] IMMATURE GRANS % 0.4 0.0 - 0.5 % 09/28/2024 3:37 PM T [facility] ABS. LYMPHOCYTES 2.03 0.80 - 4.70 x10'3/uL 09/28/2024 3:37 PM T [facility] 09/28/2024 3:15 PM CDT Grabiel Wang MD LABORATORY Final Resul t [facility] [address] [place] [address], [place] [phone] * LIPASE (09/28/2024 3:15 PM CDT) LIPASE 26 16 - 77 UNITS/L 09/28/2024 4:18 PM CDT [facility] 09/28/2024 3:15 PM CDT Grabiel Wang MD LABORATORY Final Resul t Performing Organization Address [facility] Co de Phone Number [facility] [address] [place] [address], [place] [phone] * OUTSIDE CYTOPATH VAG/CERV PAP WITH HPV (01/27/2014) 01/27/2014 Narrative 01/27/2014 Ordered by an unspecified provider. us Documents Scanned SCANNING Final Result from Last 3 Months or Most Recently Relevant to Health Maintenance Insurance [facility] Care Teams Dispatch Lead Relationship Specialty [place] [address] [place] [address] PCP - General Physician Pallet Stone Inserter Medical 04/28/23
--- OUTSIDE RECORDS SUMMARY | 2024-10-06 14:57 | XMS_ITS | Encounter Summary ---
Author Organization [facility] Address [address] [place] [address] Care Team Providers Care Banana Grader Name Role Phone Yanira Catalan [facility] Primary Care Provider + Rashawn Rhodes Primary Care Provider [phone] Encounter Details Date Type Department Care Team (Late st Contact Info) Description 04/24/2022 139shopt Message Enc [facility] Medical Group Family & Internal Medicine [address] [address] Yanira Catalan [facility] [address] [place] [address] Back pain Social History Tobacco [...] Coronavirus/COVID-19? No / Unsure 04/18/2022 12:08 PM SAFE EXPERT documented as of this encounter Plan of Treatment Not on file documented as of this encounter Visit Diagnoses Not on filedocumented in this encounter Additional Health Concerns Assessment Noted Time PHQ-9 Depression Total Score: 10 023 3:38 PM SAFE EXPERT documented as of this encounter Care Teams Banana Grader Relationship Specialty Start Date End Date Yanira Catalan FNP- PCP - General Nurse Practitioner Family 08/27/1803/31 [place] [address] [place] [address] PCP - General Physician [employer] Medical 04/28/23 documented as of this encounter
[2024-10-06 15:06] LABS: Hematocrit 39.7 % (35.0-49.0); Hemoglobin 12.6 g/dL (12.0-15.0); Immature Granulocyte Percent A 0.4 % (0.0-0.0); Lymphocytes Absolute Auto 1.74 K/mm3 (1.10-4.50); Mean Corpuscular HGB Conc 31.7 g/dL (32-36); Mean Corpuscular Hemoglobin 26.6 pg (27.0-31.0); Mean Corpuscular Volume 83.8 fL (78.0-102.0); Nucleated Red Blood Cells Absolute Auto 0.00 K/mm3 (0.00-0.00); Nucleated Red Blood Cells Perc 0.0 % (0-0.0); Platelet Count Result 320 K/mm3 (150-420); Red Blood Count 4.74 M/mm3 (4.20-5.40); White Blood Count 8.2 K/mm3 (4.8-10.8)
== END 2024-10-06 14:53 | disposition home or self-care (01) ==
LOC: CHSLAB 14:54
PROVIDERS: PCP Physician Assistant Medical; Visit Provider Physician Assistant Medical
DX: R10.9 Unspecified abdominal pain (principal); K92.1 Melena
CPT/HCPCS: 36415; 85025

== ENCOUNTER 2024-10-11 00:18 | Day surgery (SDC) | payer OTHER, SELFPAY ==
[2024-10-07 09:52] VITALS: BMI 42.9
--- OUTSIDE RECORDS SUMMARY | 2024-10-11 00:20 | XMS_ITS | Encounter Summary ---
Author Organization [facility] Address [address] [place] [address] Care Team Providers Care Maintenance Advisor Name Role Phone Yanira Catalan [facility] Primary Care Provider + Rashawn Rhodes Primary Care Provider [phone] Encounter Details Date Type Department Care Team (Late st Contact Info) Description 08/07/2022 [employer] Message Enc [facility] Medical Group Family & Internal Medicine [address] [address] Yanira Catalan [facility] [address] [place] [address] Side affect of medication Social [...] Depression Total Score: 10 023 3:38 PM SUPERINTENDENT SEED MILL documented as of this encounter Care Teams Maintenance Advisor Relationship Specialty Start Date End Date [facility] PCP - General Nurse Practitioner Family 08/27/1803/31 [place] [address] [place] [address] PCP - General Physician [employer] Specialist Medical 04/28/23 documented as of this encounter
--- OUTSIDE RECORDS SUMMARY | 2024-10-11 00:20 | XMS_ITS | Encounter Summary ---
Author Organization [facility] Address [address] [place] [address] Care Team Providers Care Prison Warden Name Role Phone Yanira Catalan [facility] Primary Care Provider + Rashawn Rhodes Primary Care Provider [phone] Encounter Details Date Type Department Care Team (Late st Contact Info) Description 12/27/2019 MyCKnowromt Message Enc [facility] Medical Group Family & Internal Medicine [address] [address] Yanira Catalan [place] [address] [place] [address] RE: Test Results Social History [...] Depression Total Score: 10 019 2:02 PM MUCK BOSS documented as of this encounter Care Teams Prison Warden Relationship Specialty Start Date End Date Yanira Catalan FNP-BC PCP - General Nurse Practitioner Family 08/27/1803/31 [place] [address] [place] [address] PCP - General Physician [employer] Maker Medical 04/28/23 documented as of this encounter
--- OUTSIDE RECORDS SUMMARY | 2024-10-11 00:20 | XMS_ITS | Clinical Summary ---
Author Organization [facility] Address [address] [place] [address] Care Team Providers Care 7Th Grade Teacher Name Role Phone Rashawn Rhodes Primary Care Provider [phone] Allergies Active Allergy Reactions Criticality Noted Date [...] unspec ified asthma severity, unspecified whether persistent ([facility]/HCC) 08/30/2018 Class 3 severe obesity due t o excess calories without serious comorbidity with body mass index (BMI) of 40.0 to 44.9 in adult 08/30/2018 Resolved Problems Problem Noted Date Diagnosed Date Resolved Date Other fatigue 08/30/2018 08/25/2022 Left elbow pain 08/17/2018 04/24/2022 Encounters Date Type Department Care Team Description 09/28/2024 2:43 PM CDT - 09/28/2024 7:02 PM CDT Emergency [facility] Emergency Room [address] [place] [address] Grabiel Wang MD Abdominal Pain Discharge Disposition: [...] 5 season) 2023 04/30/2020, 04/09/2020 PHQ-2 (Physician [employer]) 03/30/2024 04/29/2023 DTaP, Tdap and Td Vaccines [...] 5:42 PM Narrative 09/28/2024 5:44 PM CDT [facility] [address] [place] [address] EXAMINATION: US ABD LIMITED REPORT DATE: 09/28/2024 [...] pericholecystic fluid. Absent sonographic Mcdermott sign, per director of radiology. RIGHT KIDNEY: 10.7 cm in length . Normal echogenicity. Normal morphology. No pelvicalyceal dilatation, calculi, or mass. Procedure Note Samantha Gao DO - 09/28/2024 [facility] [address] [facility] [address] EXAMINATION: US ABD LIMITED REPORT DATE: 09/28/2024 [...] or pericholecystic fluid. Absent sonographic Mcdermott sign,per director of radiology. RIGHT KIDNEY: 10.7 cm in length . [...] 5:38 PM Narrative 09/28/2024 5:42 PM CDT [facility] [address] [place] [address] STUDY: CT ABD+PEL WO CON: 09/28/2024 4:43 [...] than left. Soft tissues: Unremarkable. Procedure Note Samanhta Gao DO - 09/28/2024 [facility] [address] [place] [address] STUDY: CT ABD+PEL WO CON: 09/28/2024 4:43 [...] COLOR (U) YELLOW 09/28/2024 4:[address] [facility] TRANSPARENCY CLEAR 09/28/2024 4:[address] [facility] SPECIFIC GRAVITY (U) 1.015 1.000 - 1.030 09/28/2024 4:[address] [facility] U PH 6.0 5.0 - 9.0 09/28/2024 4:[address] [facility] LEUKOCYTES (U) TRACE(A) NEGATIVE 09/28/2024 4:[address] [facility] NITRITES NEGATIVE NEGATIVE 09/28/2024 4:[address] [facility] PROTEIN RANDOM (U) NEGATIVE NEGATIVE 09/28/2024 4:[address] [facility] GLUCOSE (U) NEGATIVE NEGATIVE 09/28/2024 4:[address] [facility] KETONES MG/DL (U) NEGATIVE NEGATIVE 09/28/2024 4:[address] [facility] BILIRUBIN (U) NEGATIVE NEGATIVE 09/28/2024 4:[address] [facility] BLOOD (U) TRACE(A) NEGATIVE 09/28/2024 4:[address] [facility] URINE SPECIMEN OBTAINED BY CLEAN CATCH PROCEDURE / Unknown 09/28/2024 3:15 PM CDT us Grabiel Wang MD URINE ORDERABLES Final Resu lt [facility] [address] [place] [address], * TEST URINE (09/28/2024 3:15 PM CDT) URINE HCG TEST NEGATIVE NEGATIVE 09/28/2024 4:[address] [facility] Comment: VERY DILUTE URINE SPECIMENS MAY NOT CONTAIN MOTION PICTURE NARRATOR LEVELS OF HCG. IF IS STILL SUSPECTED, A SERUM HCG TEST IS RECOMMENDED. URINE SPECIMEN FROM URETHRA / Unknown 09/28/2024 3:15 PM CDT us Grabiel Wang MD URINE ORDERABLES Final Resu lt Performing Organization Address City/[facility]/ZIP Co de Phone Number [facility] [address] [place] [address], [place] [phone] * URINALYSIS MICRO ONLY (09/28/2024 3:15 PM CDT) WBC/HPF 0-5 0 - 5 /HPF 09/28/2024 4:[address] [facility] RBC/HPF 0-5 0 - 5 /HPF 09/28/2024 4:[address] [facility] EPI/HPF FEW /HPF 09/28/2024 4:[address] [facility] 09/28/2024 3:15 PM CDT us Grabiel Wang MD URINE ORDERABLES Final Resu lt Performing Organization Address [facility] Co de Phone Number [facility] [address] [place] [address], [place] [phone] * (ABNORMAL) COMPREHENSIVE METABOLIC PANEL (09/28/2024 3:15 PM CDT) GLUCOSE 100(H) 70 - 99 MG/DL 09/28/2024 4:[address] [facility] BUN 7 7 - 18 MG/DL 09/28/2024 4:[address] [facility] CREATININE S/P/B 0.82 0.55 - 1.02 MG/DL 09/28/2024 4:[address] [facility] SODIUM S/P/B 139 136 - 145 MMOL/L 09/28/2024 4:[address] [facility] POTASSIUM S/P/B 3.6 3.5 - 5.1 MMOL/L 09/28/2024 4:18 PM [facility] CHLORIDE S/P/B 102 100 - 108 MMOL/L 09/28/2024 4:18 PM [facility] CO2 28.5 21 - 32 MMOL/L 09/28/2024 4:18 PM [facility] CALCIUM S/P/B 9.3 8.5 - 10.1 MG/DL 09/28/2024 4:18 PM [facility] BILIRUBIN TOTAL S/P/B 0.5 0.2 - 1.2 MG/DL 09/28/2024 4:18 PM [facility] TOTAL PROTEIN S/P/B 8.5(H) 6.4 - 8.2 G/DL 09/28/2024 4:18 PM [facility] ALBUMIN S/P/B 4.1 3.4 - 5.0 G/DL 09/28/2024 4:18 PM [facility] AST 35 15 - 37 U/L 09/28/2024 4:18 PM [facility] ALT 51 14 - 55 U/L 09/28/2024 4:18 PM [facility] ALKALINE PHOSPHATASE S/P/B 90 50 - 136 U/L 09/28/2024 4:18 PM [facility] ANION GAP 8.5 5 - 15 MMOL/L 09/28/2024 4:18 PM [facility] BUN CREATININE RATIO 8.5 6 - 26 09/28/2024 4:18 PM [facility] A/G RATIO 0.9(L) 1.0 - 2.0 RATIO 09/28/2024 4:18 PM [facility] GFR ESTIMATE >90 >90 ML/MIN/1.7 3 M2 09/28/2024 4:[address] [facility] Comment: NOTE: eGFR is not calculated for patients <18 years of age. This is an estimated GFR calculation using the new CKD EPI creatinine equation without race and so does not require a correction factor for race. This estimated GFR should not be used for calculating drug doses. 09/28/2024 3:15 PM CDT us Grabiel Wang MD LABORATORY Final Resul t [facility] [address] [place] [address], * CBC W/DIFF AUTOMATED (09/28/2024 3:15 PM CDT) WBC 8.55 4.4 - 11.0 x10'3/uL 09/28/2024 3:[address] [facility] RBC 5.07 4.50 - 5.10 x10'6/uL 09/28/2024 3:[address] [facility] HGB 13.7 12.3 - 15.3 G/DL 09/28/2024 3:[address] [facility] HCT 42.8 35.9 - 44.6 % 09/28/2024 3:[address] [facility] MCV 84.4 80.0 - 96.0 FL 09/28/2024 3:[address] [facility] MCH 27.0 25.3 - 30.9 PG 09/28/2024 3:[address] [facility] MCHC 32.0 31.0 - 34.1 G/DL 09/28/2024 3:[address] [facility] RDW 13.8 12.4 - 15.1 % 09/28/2024 3:[address] [facility] PLT 347 151 - 353 x10'3/uL 09/28/2024 3:[address] [facility] MPV 10.6 9.6 - 12.0 FL 09/28/2024 3:[address] [facility] RBC MORPHOLOGY NORMAL 09/28/2024 3:[address] [facility] PLT MORPH. NORMAL 09/28/2024 3:[address] [facility] WBC MORPHOLOGY NORMAL 09/28/2024 3:[address] [facility] LYMPHOCYTES % 23.7 15.8 - 45.0 % 09/28/2024 3:[address] [facility] NEUTROPHILS % 66.3 42.1 - 71.9 % 09/28/2024 3:[address] [facility] MONOCYTES % 7.0 5.7 - 12.5 % 09/28/2024 3:[address] [facility] EOSINOPHILS 2.0 0.0 - 5.6 % 09/28/2024 3:[address] [facility] BASOPHILS 0.6 0.0 - 1.3 % 09/28/2024 3:[address] [facility] ABS. NEUTROPHILS 5.67 1.40 - 6.00 x10'3/uL 09/28/2024 3:[address] [facility] IMMATURE GRANS % 0.4 0.0 - 0.5 % 09/28/2024 3:[address] [facility] ABS. LYMPHOCYTES 2.03 0.80 - 4.70 x10'3/uL 09/28/2024 3:[address] [facility] 09/28/2024 3:15 PM CDT Grabiel Wang MD LABORATORY Final Resul t [facility] [address] [place] [address], [place] [phone] * LIPASE (09/28/2024 3:15 PM CDT) LIPASE 26 16 - 77 UNITS/L 09/28/2024 4:[address] [facility] 09/28/2024 3:15 PM CDT Grabiel Wang MD LABORATORY Final Resul t Performing Organization Address [facility] Co de Phone Number [facility] [address] [place] [address], [place] [phone] * OUTSIDE CYTOPATH VAG/CERV PAP WITH HPV (01/27/2014) 01/27/2014 Narrative 01/27/2014 Ordered by an unspecified provider. us Documents Scanned SCANNING Final Result from Last 3 Months or Most Recently Relevant to Health Maintenance Insurance [facility] Care Teams 7Th Grade Teacher Relationship Specialty [place] [address] [place] [address] PCP - General Physician Laserist Medical 04/28/23
--- OUTSIDE RECORDS SUMMARY | 2024-10-11 00:20 | XMS_ITS | Encounter Summary ---
Author Organization [facility] Address [address] [place] [address] Care Team Providers Care Cloud Services Architect Name Role Phone Yanira Catalan [facility] Primary Care Provider + Rashawn Rhodes Primary Care Provider [phone] Encounter Details Date Type Department Care Team (Late st Contact Info) Description 04/24/2022 Mlogt Message Enc [facility] Medical Group Family & Internal Medicine [address] [address] Yanira Catalan [facility] [address] [place] [address] Back pain Social History Tobacco [...] Coronavirus/COVID-19? No / Unsure 04/18/2022 12:08 PM IS TECHNICIAN documented as of this encounter Plan of Treatment Not on file documented as of this encounter Visit Diagnoses Not on filedocumented in this encounter Additional Health Concerns Assessment Noted Time PHQ-9 Depression Total Score: 10 023 3:38 PM IS TECHNICIAN documented as of this encounter Care Teams Cloud Services Architect Relationship Specialty Start Date End Date Yanira Catalan FNP- PCP - General Nurse Practitioner Family 08/27/1803/31 [place] [address] [place] [address] PCP - General Physician Client Hr Manager Medical 04/28/23 documented as of this encounter
--- OUTSIDE RECORDS SUMMARY | 2024-10-11 00:20 | XMS_ITS | Encounter Summary ---
Author Organization [facility] Address [address] [place] [address] Care Team Providers Care Asset Coordinator Name Role Phone [facility] Primary Care Provider + Rashawn Rhodes Primary Care Provider [phone] Encounter Details Date Type Department Care Team (Late st Contact Info) Description 09/24/2022 MyChart Message Enc [facility] Medical Group - [facility] [address] [place] [address] [phone] [place], [facility] Provider Air Quality Message Social History [...] documented as of this encounter Care Teams Asset Coordinator Relationship Specialty Start Date End Date Yanira Catalan FNP-BC PCP - General Nurse Practitioner Family 08/27/18 112/21 [place] [address] [place] [address] PCP - General Physician Chair Lift Operator Medical 04/28/23 documented as of this encounter
--- OUTSIDE RECORDS SUMMARY | 2024-10-11 00:20 | XMS_ITS | Encounter Summary ---
Author Organization [facility] Address [address] [place] [address] Care Team Providers Care Multi Craft Maintenance Technician Name Role Phone Yanira Catalan [facility] Primary Care Provider + Rashawn Rhodes Primary Care Provider [phone] Encounter Details Date Type Department Care Team (Late st Contact Info) Description 06/23/2022 [employer] Message Enc [facility] Medical Group Family & Internal Medicine [address] [address] Afshan, [facility] Provider due for routine follow up [...] Depression Total Score: 10 023 3:38 PM SVP OPERATIONS documented as of this encounter Care Teams Multi Craft Maintenance Technician Relationship Specialty Start Date End Date [facility] PCP - General Nurse Practitioner Family 08/27/1803/31 [place] [address] [place] [address] PCP - General Physician Eligibility Consultant Medical 04/28/23 documented as of this encounter
--- OUTSIDE RECORDS SUMMARY | 2024-10-11 00:20 | XMS_ITS | Clinical Summary ---
Author Organization [facility] Address [address] [place] [address] Care Team Providers Care Production Machinist Name Role Phone Unavailable Primary Care Provider Unavailabl e Source Comments [facility],non-owned Affiliates and Associated Physician Practices is amultiple site organization consisting of ambulatory clinics and hospital sitesin [place], [place], [place] and [place]. This disclosure is being madepursuant to the Care Everywhere program and may not contain all information available regarding this patient. Last updated 17.[facility] Social History Tobacco Use Types Packs/Day Years Used Date Smoking Tobacco: Never Assessed Comments Unknown Sex and Gender Information Value Date Recorded Sex Assigned at Not on file Legal Sex Female 6:31 PM GUIDE TRAVEL Gender Identity Not on file Sexual Orientation Not on file Plan of Treatment Health Maintenance Due Date Last Done Comments HIV SCREENING 07/07/2002 HEPATITIS C SCREENING 07/03/2005 DTAP/TDAP/TD VACCINES (1 - Tdap) 07/07/2006 HEPATITIS B VACCINE (1 of 3 - 19+ 3-dose series) 07/07/2006 PAP SMEAR 07/07/2008 HPV VACCINE (1 - 3-dose SCDM series) 07/07/2014 COVID-19 VACCINE ( - 2023-2 5 season) 2023 DEPRESSION SCREENING 03/30/2024 INFLUENZA VACCINE (#1) 2024 ZOSTER VACCINE (1 of 2) 07/07/2037 [...]
[2024-10-11 10:09] VITALS: BP 122/92; PULSE 72; RESP 16; TEMP 35.8; O2SAT 100; BMI 42.9
[2024-10-11 10:24] LABS: BEDSIDEPREGUCG Negative (Negative)
[2024-10-11] MEDS: LACTATED RINGERS 1,000 ML 150 ML IV CONT (10:29)
--- NOTE | 2024-10-11 10:42 | WPDANESEPPF ---
Anes - Initial Pre Proc Eval Procedure: Operation Date: 10/11/24 11:30 Proposed Procedures p Esophagogastroduodenoscopy - Dorian Ashby MD Date/Time: 10/11/24 10:42 Surgeon: Dorian Ashby MD Pre Op Diagnosis: Unspecified abdominal pain Patient Data Age: 39 Gender: F Height: 1.63 m Weight: 113.5 kg Last Vital Signs Temp 35.8 C L 10/11/24 10:09 Pulse 72 10/11/24 10:09 Resp 16 10/11/24 10:09 BP 122/92 H 10/11/24 10:09 Pulse Ox 100 10/11/24 10:09 O2 Del Method Room Air 10/11/24 10:09 Allergies Allergy/AdvReac Type Severity Reaction Status Date / Time prednisone AdvReac Palpitation Verified 10/11/24 10:17 s Home Medications ?Medication ?Instructions ?Recorded ?Confirmed ?Type cholecalciferol (vitamin D3) 125 125 mcg PO DAILY 12/04/23 10/11/24 History mcg (5,000 unit) capsule cyanocobalamin (vitamin B-12) 1,000 mcg sublingual DAILY 12/04/23 10/11/24 History 1,000 mcg sublingual tablet meloxicam 15 mg tablet 15 mg PO DAILY #30 tabs 07/19/24 10/11/24 Rx furosemide 20 mg tablet (Lasix) 20 mg PO QAM PRN edema #30 tabs 08/15/24 10/07/24 Rx levothyroxine 25 mcg tablet 25 mcg PO DAILY #90 tabs 09/13/24 10/11/24 Rx metformin 500 mg tablet,extended See Rx Instructions PO .COMPLEX 09/13/24 10/11/24 Rx release 24 hr #270 tabs omeprazole 20 mg capsule,delayed 40 mg PO DAILY 10/06/24 10/11/24 History release Laboratory Tests 10/11/24 10/11/24 10:09 10:25 POC Capillary Glucose 99 mg/dl (65-105) POC Urine HCG, Qual Negative (Negative) Patient hx anesthesia problems: none Family hx anesthesia problems: none Results Review: All pre-operative results and documents have been reviewed as part of the pre-operative evaluation. [facility] Past Medical History Medical History Hypothyroidism Snoring Pre-diabetes Vitamin B12 deficiency Vitamin D deficiency Anxiety Surgical History Surgical History H/O tubal ligation 2015 Family History Family History Father Depression Diabetes mellitus Heart disease Hypertension Thyroid disease Sibling Depression Diabetes mellitus Hypertension Thyroid disease Grandparent Hypertension Grandparent Cancer Asthma Diabetes mellitus Heart disease Hypertension Thyroid disease Grandparent Heart disease Hypertension Grandparent Diabetes mellitus Heart disease Thyroid disease Social History Social History Social History: 10/06/24 very confident with medical forms Years smoked: 15 Smoking status: Former smoker Alcohol intake: former Substance use: never Substance use type: does not use Do You Feel Safe in your Home?: Yes Lack of Transportation: No Lack of Food: Never True Current Housing: I Have Housing Concerned About Future Housing: No Difficulty Paying Gas/Electric Bills: No Difficulty Paying for Meds: No Currently Unemployed: No Education: Trade/Vocational Certificate Difficulty w/ Childcare or Family Care: No Living arrangements: with family Additional living arrangements comments: with sp Occupation/Education: occupation Agree to blood products: No Anes - Eval Final PreProcedure Day of Procedure 10/11/24 10:42 Patient weight: morbidly obese Heart: regular rate and rhythm Lungs: clear to auscultation Airway: Mallampati scale class II Neurological: alert and oriented Last oral intake: >/= 8 hours ASA classification: III Emergent: no Anesthetic plan: proceed Anesthesia type and monitoring: general GIVS and standard monitoring Results Review: All pre-operative results and documents have been reviewed as part of the pre-operative evaluation. Informed Consent: The patient's anesthetic plan and its attendant risks and benefits were discussed with the patient/family/POA. Questions were solicited and answers provided to the satisfaction of the patient/family/POA.
--- NOTE | 2024-10-11 10:50 | PM.HPGS ---
History of Present Illness History of Present Illness Consent: Risks, benefits, and alternatives have been discussed and questions answered. Patient agrees to proceed with procedure. Chief complaint: Unspecified abdominal pain Narrative: Lizeth Duvall is a 39 year old female here for first EGD, recently with dark stools after using nsaid's Review of Systems Review of Systems: All systems reviewed & are unremarkable except as noted in HPI and below PMFSH Past Medical History Medical History Hypothyroidism Snoring Pre-diabetes Vitamin B12 deficiency Vitamin D deficiency Anxiety Surgical History Surgical History H/O tubal ligation 2015 Family History Family History Father Depression Diabetes mellitus Heart disease Hypertension Thyroid disease Sibling Depression Diabetes mellitus Hypertension Thyroid disease Grandparent Hypertension Grandparent Cancer Asthma Diabetes mellitus Heart disease Hypertension Thyroid disease Grandparent Heart disease Hypertension Grandparent Diabetes mellitus Heart disease Thyroid disease Social History Social History Social History: 10/06/24 very confident with medical forms Years smoked: 15 Smoking status: Former smoker Alcohol intake: former Substance use: never Substance use type: does not use Do You Feel Safe in your Home?: Yes Lack of Transportation: No Lack of Food: Never True Current Housing: I Have Housing Concerned About Future Housing: No Difficulty Paying Gas/Electric Bills: No Difficulty Paying for Meds: No Currently Unemployed: No Education: Trade/Vocational Certificate Difficulty w/ Childcare or Family Care: No Living arrangements: with family Additional living arrangements comments: with sp Occupation/Education: occupation Agree to blood products: No Meds Home Medications and Allergies Home Medications ?Medication ?Instructions ?Recorded ?Confirmed ?Type cholecalciferol (vitamin D3) 125 125 mcg PO DAILY 12/04/23 10/11/24 History mcg (5,000 unit) capsule cyanocobalamin (vitamin B-12) 1,000 mcg sublingual DAILY 12/04/23 10/11/24 History 1,000 mcg sublingual tablet meloxicam 15 mg tablet 15 mg PO DAILY #30 tabs 07/19/24 10/11/24 Rx furosemide 20 mg tablet (Lasix) 20 mg PO QAM PRN edema #30 tabs 08/15/24 10/07/24 Rx levothyroxine 25 mcg tablet 25 mcg PO DAILY #90 tabs 09/13/24 10/11/24 Rx metformin 500 mg tablet,extended See Rx Instructions PO .COMPLEX 09/13/24 10/11/24 Rx release 24 hr #270 tabs omeprazole 20 mg capsule,delayed 40 mg PO DAILY 10/06/24 10/11/24 History release Allergies Allergy/AdvReac Type Severity Reaction Status Date / Time prednisone AdvReac Palpitation Verified 10/11/24 10:17 s Vital Signs Vital Signs - 24 hr 10/11/24 10:09 Temperature 96.5 F L Pulse Rate 72 Respiratory Rate 16 Blood Pressure 122/92 H Pulse Oximetry 100 Oxygen Delivery Room Air Exam Const: General: comfortable and no acute distress HENMT: Face/Nose/Sinus: Normal nares present Eyes: General: appearance normal, both eyes and all related structures Neck: Neck: no JVD Resp: Auscultation: clear to auscultation bilaterally Cardio: Rate: regular rate Rhythm: regular rhythm GI: Inspection: non-distended GI Palp: Yes Soft to palpation Skin: General skin exam: normal color Neuro: Speech: normal speech Extrem: General: normal to inspection Psych: Mental Status: mental status grossly normal Assessment and Plan Assessment and plan (1) Melena: Code(s): K92.1 - Melena Status: Acute Assessment and Plan: egd (2) Abdominal pain: Code(s): R10.9 - Unspecified abdominal pain Status: Acute
[2024-10-11] MEDS: BENZOCAINE (*SP) 60 ML SPRAY CAN (HURRICAINE) 1 SPRAY MUCOUS MEM (10:51)
--- NOTE | 2024-10-11 10:54 | S_PTH ---
PATIENT: Lizeth Duvall LOC: ANU [place]#:[id number] AGE/SX: 39/F ROOM: RE10/11/[address]: Dorian Ashby MD : 1985 BED: DIS: 10/11/2024 SPEC #: [id number] RECD: 10/11/24 13:17 STATUS: SANTOS REQ #: [id number] PADMINI: 10/11/24 10:[address]: Dorian Ashby DEPT: [facility] Surgical RECD BY: Jazmín Silva ENTERED: 10/11/24 13:18 SP TYPE: Surgical OTHR DR: Lizeth Posada PA-C Tissues: A - Gastric Biopsy Procedures: Hematoxylin and Eosin Stain Gross and Microscopic Level 4
[2024-10-11 11:02] VITALS: BP 110/67; PULSE 99; RESP 19; O2SAT 96
[2024-10-11 11:09] VITALS: BP 112/76; PULSE 74; RESP 18; O2SAT 96
[2024-10-11 11:19] VITALS: BP 114/70; PULSE 69; RESP 16; O2SAT 97
== END 2024-10-11 11:31 | disposition home or self-care (01) ==
PROVIDERS: Anesthesiology; PCP Physician Assistant Medical; Referring Provider Physician Assistant Medical; Visit Provider Internal Medicine Gastroenterology
PROC: 0DJ08ZZ Inspection of Upper Intestinal Tract, Via Natural or Artificial Opening Endoscopic (ICD-10-PCS; CPT 43239; principal; 2024-10-11 11:30)
DX: K29.70 Gastritis, unspecified, without bleeding (principal); Z87.891 Personal history of nicotine dependence; E66.01 Morbid (severe) obesity due to excess calories; Z68.41 Body mass index [BMI] 40.0-44.9, adult
CPT/HCPCS: 43239; 82948; 88305; J2003; J2704; J7120

== ENCOUNTER 2024-10-28 09:09 | Outpatient (CLI) | payer OTHER, SELFPAY ==
--- NOTE | ~2024-10-28 | NM_ITS ---
EXAMINATION: NM_HEPATWP_NM DATE: 10/28/2024 11:28 INDICATION: Right upper quadrant abdominal pain COMPARISON: None. TECHNIQUE: 5.2 mCi Tc-99m mebrofenin (Choletec) was administered intravenously. Scintigraphic images of the abdomen were obtained for one hour. 2.3 mcg sincalide (Kinevac) was administered by slow intr avenous infusion, and imaging was continued for 30 minutes. Gallbladder ejection fraction was calcula vince by the technologist. FINDINGS: There is normal clearance of radiotracer from the blood pool. There is homogeneous tracer uptake by t he liver. Activity progresses to the gallbladder and bowel. The gallbladder ejection fraction (GBEF) is 64% (normal 10-90%, but most patient with gallbladder dysfunction have GBEF < 35% which does over lap with the normal range). IMPRESSION: 1. Normal hepatobiliary scan. Reviewed, dictated and finalized at location A.
--- OUTSIDE RECORDS SUMMARY | 2024-10-28 09:13 | XMS_ITS | Clinical Summary ---
Author Organization [facility] [employer] Address [address] [place] [address] Care Team Providers Care Duplicator Punch Operator Name Role Phone Unavailable Primary Care Provider Unavailabl e Source Comments [facility] [employer],non-owned Affiliates and Associated Physician Practices is amultiple site organization consisting of ambulatory clinics and hospital sitesin [place], [place], [place] and [place]. This disclosure is being madepursuant to the Care Everywhere program and may not contain all information available regarding this patient. Last updated 17.[facility] [employer] Social History Tobacco Use Types Packs/Day Years Used Date Smoking Tobacco: Never Assessed Comments Unknown Sex and Gender Information Value Date Recorded Sex Assigned at Not on file Legal Sex Female 6:31 PM DELIVERY MANAGER Gender Identity Not on file Sexual Orientation [...] on patient's age to complete this topic Insurance [facility] [place] [id number]
== END 2024-10-28 09:10 | disposition home or self-care (01) ==
PROVIDERS: PCP Physician Assistant Medical; Visit Provider Physician Assistant Medical
DX: R10.11 Right upper quadrant pain (principal)
CPT/HCPCS: 78227; A9537; J2805